=== PATIENT | male | born 2000 | race African-American/Black ===

== ENCOUNTER 2019-10-20 22:30 | Emergency (ER) | payer MEDICAID, OTHER ==
[~2019-10-20] VITALS: Ht 175.3 cm; Wt 84.0 kg
[2019-10-20] MEDS ORDERED: IBUPROFEN 600MG TABLET PO ONE (23:00)
[2019-10-20] MEDS ORDERED: BACITRACIN ZINC OINT UDPKT TOP ONE (23:00)
[2019-10-21 00:43] VITALS: BP 125/79
== END 2019-10-21 00:44 | disposition home or self-care (01) ==
LOC: ER 22:30
DX: S60.221A Contusion of right hand, initial encounter (principal); Z90.89 Acquired absence of other organs; V43.62XA Car passenger injured in collision with other type car in traffic accident, initial encounter; Y93.89 Activity, other specified; Y92.488 Other paved roadways as the place of occurrence of the external cause
CPT/HCPCS: 29125; 73130; 99283

== ENCOUNTER 2020-02-10 14:39 | Emergency (ER) | payer MEDICAID ==
[~2020-02-10] VITALS: Ht 172.7 cm; Wt 79.0 kg
[2020-02-10 14:51] VITALS: BP 137/92
[2020-02-10] MEDS ORDERED: CEFTRIAXONE SODIUM 250 MG/VIAL IM ONE (15:45)
[2020-02-14 05:10] LABS: NEISSERIA GONORRHOEAE NAA Positive (Negative)
== END 2020-02-10 15:52 | disposition home or self-care (01) ==
LOC: ER 14:39
DX: N34.2 Other urethritis (principal); Z20.2 Contact with and (suspected) exposure to infections with a predominantly sexual mode of transmission
CPT/HCPCS: 87491; 87591; 96372; 99283; J0696

== ENCOUNTER 2020-06-09 16:24 | Emergency (ER) | payer MEDICAID ==
[~2020-06-09] VITALS: Ht 172.7 cm; Wt 80.0 kg
[2020-06-09 16:43] VITALS: BP 129/95
[2020-06-09] MEDS ORDERED: CEFTRIAXONE SODIUM 250 MG/VIAL IM ONE (18:00)
[2020-06-09] MEDS ORDERED: AZITHROMYCIN 500 MG TABLET PO ONE (18:00)
[2020-06-09 18:45] LABS: CLARITY URINE CLEAR (CLEAR); COLOR URINE YELLOW (YELLOW); KETONES URINE NEGATIVE (NEGATIVE); LEUKOCYTE ESTERASE URINE 3+ (NEGATIVE); NITRITE URINE NEGATIVE (NEGATIVE); OCCULT BLOOD URINE TRACE (NEGATIVE); PH URINE 6.5 (4.5-8.0); PROTEIN URINE NEGATIVE (NEGATIVE); SPECIFIC GRAVITY URINE 1.029 (1.005-1.030)
[2020-06-12 06:10] LABS: NEISSERIA GONORRHOEAE NAA Positive (Negative)
== END 2020-06-09 18:35 | disposition home or self-care (01) ==
LOC: ER 16:24
DX: N34.2 Other urethritis (principal); Z98.890 Other specified postprocedural states
CPT/HCPCS: 81003; 87086; 87491; 87591; 96372; 99283; J0696

== ENCOUNTER 2020-07-06 11:27 | Emergency (ER) | payer MEDICAID ==
[~2020-07-06] VITALS: Ht 175.3 cm; Wt 82.0 kg
[2020-07-06] MEDS ORDERED: HYDROCODONE/ACETAMINOPHEN 5/325MG TABLET PO ONE (11:45)
[2020-07-06 13:35] VITALS: BP 130/83
== END 2020-07-06 13:37 | disposition home or self-care (01) ==
LOC: ER 11:27
DX: S90.31XA Contusion of right foot, initial encounter (principal); X58.XXXA Exposure to other specified factors, initial encounter; Y93.89 Activity, other specified; Y92.018 Other place in single-family (private) house as the place of occurrence of the external cause
CPT/HCPCS: 73630; 82962; 99283

== ENCOUNTER 2020-10-27 03:21 | Emergency (ER) | payer MEDICAID ==
[~2020-10-27] VITALS: Ht 172.7 cm; Wt 84.0 kg
[2020-10-27 03:23] VITALS: BP 139/111
[2020-10-27] MEDS ORDERED: LIDOCAINE HCL/PF 1% 10 MG/ML 5ML VIAL IJ ONE (03:45)
[2020-10-27] MEDS ORDERED: BACITRACIN ZINC OINT UDPKT TOP ONE (03:45)
[2020-10-27] MEDS ORDERED: IBUPROFEN 600MG TABLET PO ONE (03:45)
[2020-10-27] MEDS ORDERED: IBUP-2029 MT (03:53)
[2020-10-27] MEDS ORDERED: BO1 TP (03:53)
== END 2020-10-27 04:32 | disposition home or self-care (01) ==
LOC: ER 03:21
DX: S61.411A Laceration without foreign body of right hand, initial encounter (principal); W03.XXXA Other fall on same level due to collision with another person, initial encounter; Y93.89 Activity, other specified; Y92.89 Other specified places as the place of occurrence of the external cause; Y99.8 Other external cause status
CPT/HCPCS: 12001; 73130; 99283; J3490

== ENCOUNTER 2020-11-08 14:57 | Emergency (ER) | payer MEDICAID ==
[~2020-11-08] VITALS: Ht 172.7 cm; Wt 84.0 kg
[~2020-11-08 14:57] MED LIST: BO1 TP; IBUP-2029 MT
[2020-11-08 15:03] VITALS: BP 133/79
== END 2020-11-08 16:05 | disposition home or self-care (01) ==
LOC: ER 14:57
DX: S61.215D Laceration without foreign body of left ring finger without damage to nail, subsequent encounter (principal); W26.8XXD Contact with other sharp object(s), not elsewhere classified, subsequent encounter; Z98.890 Other specified postprocedural states
CPT/HCPCS: 99281; Z7610

== ENCOUNTER 2020-12-06 22:48 | Emergency (ER) | payer MEDICAID ==
[~2020-12-06] VITALS: Ht 172.7 cm; Wt 85.0 kg
[2020-12-07 00:59] LABS: CLARITY URINE CLEAR (CLEAR); COLOR URINE YELLOW (YELLOW); KETONES URINE TRACE (NEGATIVE); LEUKOCYTE ESTERASE URINE NEGATIVE (NEGATIVE); NITRITE URINE NEGATIVE (NEGATIVE); OCCULT BLOOD URINE NEGATIVE (NEGATIVE); PH URINE 5.5 (4.5-8.0); PROTEIN URINE NEGATIVE (NEGATIVE); SPECIFIC GRAVITY URINE 1.028 (1.005-1.030); UROBILINOGEN URINE 0.2 E.U./dL (0.2-1.0)
[2020-12-07 01:13] VITALS: BP 121/83
[2020-12-07] MEDS ORDERED: CEFTRIAXONE SODIUM 500 MG/VIAL IM ONE (01:15)
[2020-12-07] MEDS ORDERED: LIDOCAINE HCL 1% 20ML VIAL (Pyxis) INJ INFIL ONE (01:15)
[2020-12-07] MEDS ORDERED: AZITHROMYCIN 500 MG TABLET PO ONE (01:15)
[2020-12-09 04:10] LABS: NEISSERIA GONORRHOEAE NAA Negative (Negative)
== END 2020-12-07 03:39 | disposition home or self-care (01) ==
LOC: ER 22:48
DX: Z20.2 Contact with and (suspected) exposure to infections with a predominantly sexual mode of transmission (principal); Z98.890 Other specified postprocedural states
CPT/HCPCS: 81003; 87491; 87591; 96372; 99283; J0696; J3490

== ENCOUNTER 2022-07-19 10:05 | Emergency (ER) | payer MEDICAID, OTHER ==
[~2022-07-19] VITALS: Ht 175.3 cm; Wt 78.0 kg
[2022-07-19] MEDS ORDERED: LIDOCAINE HCL/PF 1% 10 MG/ML 5ML VIAL INFIL ONE (12:30)
[2022-07-19] MEDS ORDERED: CEFTRIAXONE SODIUM 500 MG/VIAL IM ONE (12:30)
[2022-07-19 12:36] LABS: CLARITY URINE CLOUDY (CLEAR); COLOR URINE YELLOW (YELLOW); KETONES URINE TRACE (NEGATIVE); LEUKOCYTE ESTERASE URINE NEGATIVE (NEGATIVE); NITRITE URINE NEGATIVE (NEGATIVE); OCCULT BLOOD URINE NEGATIVE (NEGATIVE); PH URINE 7.5 (4.5-8.0); PROTEIN URINE 2+ (NEGATIVE); SPECIFIC GRAVITY URINE 1.024 (1.005-1.030)
[2022-07-19] MEDS ORDERED: DOXY100C5 MT (12:56)
[2022-07-19 14:22] VITALS: BP 126/75
[2022-07-23 04:09] LABS: NEISSERIA GONORRHOEAE NAA Negative (Negative)
== END 2022-07-19 14:23 | disposition home or self-care (01) ==
LOC: ER 10:05
DX: A74.9 Chlamydial infection, unspecified (principal)
CPT/HCPCS: 81003; 87491; 87591; 96372; 99283; J0696; J3490

== ENCOUNTER 2024-03-06 14:09 | Emergency (ER) | payer MEDICAID ==
[~2024-03-06] VITALS: Ht 172.7 cm; Wt 77.1 kg
[~2024-03-06 14:09] MED LIST changes: +DOXY100C5 MT
[2024-03-06 14:32] VITALS: BP 122/88; PULSE 54; RESP 16; TEMP 98.2; O2SAT 98
[2024-03-06] MEDS ORDERED: CEPH500C2 MT (14:35)
[2024-03-06] MEDS: BACITRACIN ZINC OINT UDPKT TOP ONE (14:39)
== END 2024-03-06 14:42 | disposition home or self-care (01) ==
LOC: ER 14:09
DX: S81.811D Laceration without foreign body, right lower leg, subsequent encounter (principal); Z98.890 Other specified postprocedural states; X58.XXXD Exposure to other specified factors, subsequent encounter
CPT/HCPCS: 99283